=== PATIENT | female | born 1945 | race Caucasian/White ===

== ENCOUNTER → 2023-05-09 10:41 | Outpatient (REF) | payer OTHER, SELFPAY | LOC: WOUND 10:41 | PROVIDERS: ATTENDING PHYSICIAN Surgery; REFERRING PHYSICIAN Family Medicine | DX: L97.812 Non-pressure chronic ulcer of other part of right lower leg with fat layer exposed (principal); L97.822 Non-pressure chronic ulcer of other part of left lower leg with fat layer exposed; I87.2 Venous insufficiency (chronic) (peripheral); I73.9 Peripheral vascular disease, unspecified; I48.0 Paroxysmal atrial fibrillation; Z79.01 Long term (current) use of anticoagulants | CPT/HCPCS: 11042; 97597; 99213 ==

== ENCOUNTER → 2023-05-23 09:44 | Outpatient (REF) | payer OTHER, SELFPAY | LOC: WOUND 09:44 | PROVIDERS: ATTENDING PHYSICIAN Surgery; REFERRING PHYSICIAN Family Medicine | DX: L97.812 Non-pressure chronic ulcer of other part of right lower leg with fat layer exposed (principal); I87.2 Venous insufficiency (chronic) (peripheral); I73.9 Peripheral vascular disease, unspecified; L03.115 Cellulitis of right lower limb; L97.822 Non-pressure chronic ulcer of other part of left lower leg with fat layer exposed; I48.0 Paroxysmal atrial fibrillation; Z79.01 Long term (current) use of anticoagulants | CPT/HCPCS: 11042; 97597 ==

== ENCOUNTER → 2024-02-06 13:57 | Outpatient (REF) | payer OTHER, SELFPAY | LOC: HWRAD 13:57 | PROVIDERS: ATTENDING PHYSICIAN Family Medicine | DX: R51.9 Headache, unspecified (principal) | CPT/HCPCS: 70450 ==

== ENCOUNTER → 2024-03-27 10:35 | Outpatient (REF) | payer OTHER, SELFPAY | LOC: HWRAD 10:35 | PROVIDERS: ATTENDING PHYSICIAN Family Medicine | DX: R51.9 Headache, unspecified (principal); M54.2 Cervicalgia | CPT/HCPCS: 72052 ==

== ENCOUNTER → 2024-10-21 14:03 | Outpatient (REF) | payer OTHER, SELFPAY | LOC: HWRAD 14:03 | PROVIDERS: ATTENDING PHYSICIAN Student in an Organized Health Care Education/Training Program; FAMILY PHYSICIAN Family Medicine | DX: E55.9 Vitamin D deficiency, unspecified (principal); M54.12 Radiculopathy, cervical region; M81.0 Age-related osteoporosis without current pathological fracture; R21 Rash and other nonspecific skin eruption; R51.9 Headache, unspecified | CPT/HCPCS: 73120 ==

== ENCOUNTER → 2024-10-23 14:18 | Outpatient (REF) | payer OTHER, SELFPAY | LOC: HWRAD 14:18 | PROVIDERS: ATTENDING PHYSICIAN Student in an Organized Health Care Education/Training Program; FAMILY PHYSICIAN Family Medicine | DX: M81.0 Age-related osteoporosis without current pathological fracture (principal) | CPT/HCPCS: 77080 ==

== ENCOUNTER → 2024-10-30 13:34 | Outpatient (REF) | payer OTHER, SELFPAY | LOC: HWWDC 13:34 | PROVIDERS: ATTENDING PHYSICIAN Nurse Practitioner Adult Health; FAMILY PHYSICIAN Family Medicine | DX: Z12.31 Encounter for screening mammogram for malignant neoplasm of breast (principal); R06.00 Dyspnea, unspecified | CPT/HCPCS: 71046 ==

== ENCOUNTER → 2024-11-03 15:40 | Outpatient (REF) | payer OTHER, SELFPAY | LOC: HWRCS 15:40 | PROVIDERS: ATTENDING PHYSICIAN Internal Medicine Cardiovascular Disease; FAMILY PHYSICIAN Family Medicine | DX: R06.02 Shortness of breath (principal) | CPT/HCPCS: 93306 ==

== ENCOUNTER 2024-11-04 13:17 | Outpatient (RCR) | payer OTHER, SELFPAY ==
[2024-11-04 13:35] LABS: % Basophils 0.8 % (0-2); % Eosinophils 0.9 % (0-6); % Immature Granulocytes 0.1 % (0-0.5); % Lymphocytes 23.1 % (20.5-51.1); % Monocytes 10.9 % (1.7-9.3); % Neutrophils 64.2 % (42.2-75.2); Absolute Basophils 0.1 10^3/uL (0-0.2); Absolute Eosinophils 0.1 10^3/uL (0-0.7); Absolute Lymphocytes 1.7 10^3/uL (1.2-3.4); Absolute Monocytes 0.8 10^3/uL (0.1-0.6); Absolute Neutrophils 4.8 10^3/uL (1.4-6.5); Hematocrit 41.6 % (37.0-47.0); Hemoglobin 14.5 g/dL (12.0-16.0); Mean Corp Hgb Conc. 34.9 g/dL (33.0-37.0); Mean Corpuscular Hgb 34.3 pg (27.0-31.0); Mean Corpuscular Volume 98.3 fL (81.0-99.0); Mean Platelet Volume 9.3 fL (7.4-10.4); Platelet Count 217 10^3/uL (130-400); Red Blood Cell Count 4.23 10^6/uL (4.20-5.40); Red Cell Dist. Width 11.9 % (11.5-14.5); White Blood Cell Count 7.4 10^3/uL (4.8-10.8)
[2024-11-04 13:45] VITALS: BP 142/77
[2024-11-04 13:59] VITALS: BP 117/73
[2024-11-04 14:11] VITALS: BP 125/65
[2024-11-04 14:22] VITALS: BP 120/61
[2024-11-04 14:48] VITALS: BP 121/70
== END 2024-11-05 08:52 | disposition home or self-care (01) ==
LOC: OID 13:17
PROVIDERS: ATTENDING PHYSICIAN Internal Medicine Hematology & Oncology; FAMILY PHYSICIAN Family Medicine
DX: E83.110 Hereditary hemochromatosis (principal)
CPT/HCPCS: 85025; 99195

== ENCOUNTER → 2024-11-14 12:17 | Outpatient (REF) | payer OTHER, SELFPAY | LOC: HWRAD 12:17 | PROVIDERS: ATTENDING PHYSICIAN Student in an Organized Health Care Education/Training Program; FAMILY PHYSICIAN Family Medicine | DX: M25.512 Pain in left shoulder (principal) | CPT/HCPCS: 73030 ==

== ENCOUNTER → 2024-12-08 12:42 | Outpatient (REF) | payer OTHER, SELFPAY | LOC: HWRAD 12:42 | PROVIDERS: ATTENDING PHYSICIAN Family Medicine; REFERRING PHYSICIAN Specialist | DX: R22.30 Localized swelling, mass and lump, unspecified upper limb (principal) | CPT/HCPCS: 76882 ==

== ENCOUNTER → 2024-12-24 10:26 | Outpatient (REF) | payer OTHER, SELFPAY | LOC: RAD 10:26 | PROVIDERS: ATTENDING PHYSICIAN Family Medicine; REFERRING PHYSICIAN Specialist | DX: M79.602 Pain in left arm (principal) | CPT/HCPCS: 73201; Q9967 ==

== ENCOUNTER 2025-04-13 06:50 | Day surgery (SDC) | payer OTHER, SELFPAY ==
[2025-04-13 07:52] LABS: INR 2.29; PT 25.2 Sec (11.4-14.6)
== END 2025-04-13 09:50 | disposition home or self-care (01) ==
LOC: CATH 06:50
PROVIDERS: ATTENDING PHYSICIAN Internal Medicine Cardiovascular Disease; FAMILY PHYSICIAN Family Medicine; REFERRING PHYSICIAN Internal Medicine Cardiovascular Disease
DX: I48.19 Other persistent atrial fibrillation (principal); I08.1 Rheumatic disorders of both mitral and tricuspid valves; I47.10 Supraventricular tachycardia, unspecified; I10 Essential (primary) hypertension; J44.9 Chronic obstructive pulmonary disease, unspecified; K21.9 Gastro-esophageal reflux disease without esophagitis; G47.33 Obstructive sleep apnea (adult) (pediatric); Z86.73 Personal history of transient ischemic attack (TIA), and cerebral infarction without residual deficits
CPT/HCPCS: 93312; 93320; 93325; 85610

== ENCOUNTER 2025-04-15 07:58 | Day surgery (SDC) | payer OTHER, SELFPAY ==
[2025-04-10 11:22] VITALS: BMI 29.3
[2025-04-10 11:46] LABS: Hematocrit 39.7 % (37.0-47.0); Hemoglobin 13.5 g/dL (12.0-16.0); Mean Corp Hgb Conc. 34.0 g/dL (33.0-37.0); Mean Corpuscular Volume 93.0 fL (81.0-99.0); Nucleated Red Blood Cells % 0 %; Platelet Count 234 10^3/uL (130-400); Red Cell Dist. Width 13.1 % (11.5-14.5)
[2025-04-10 11:51] LABS: INR 1.84; PT 21.5 Sec (11.4-14.6)
[2025-04-10 12:28] LABS: ALT (SGPT) 22 U/L (0-35); AST (SGOT) 23 U/L (14-36); Albumin 4.6 g/dl (3.5-5.0); Alkaline Phosphatase 104 U/L (38-126); Blood Urea Nitrogen 14 mg/dl (7-17); Calcium 9.5 mg/dl (8.4-10.2); Carbon Dioxide 23 mmol/L (22-30); Chloride 101 mmol/L (98-107); Estimated Creatinine Clearance 55 ml/min; Glucose 110 mg/dl (70-99); Magnesium 2.1 mg/dl (1.6-2.3); Potassium 4.9 mmol/L (3.5-5.1); Sodium 132 mmol/L (135-145); Total Protein 7.5 g/dl (6.3-8.2); eGFR > 60.00
[2025-04-15] VITALS (15 sets, daily range): BP systolic 94–124; BP diastolic 49–74; BMI 29.1
[2025-04-15 09:10] LABS: INR 2.09; PT 24.0 Sec (11.4-14.6)
--- NOTE | 2025-04-15 10:35 | ITS.CL.ABL ---
[facility] - Ablation
Ablation
Procedure Report:
ELECTROPHYSIOLOGIC STUDY AND POSSIBLE ABLATION
DATE: April 15, 2025
Primary Care Provider: Dr. Cesar Houston
INDICATION:
Symptomatic Atrial Fibrillation.
Persistent
HISTORY: See H and P.
Symptomatic AF, poorly controlled with attempted medical therapy.
Anita has symptomatic persistent atrial fibrillation that has been rather complicated to manage.
She has had multiple allergic reactions to anticoagulants.
She also has a history of hemachromatosis and undergoes routine phlebotomy.
She has COPD and obstructive sleep apnea. Utilizes CPAP.
.
After cryptogenic stroke in November 2011, implanted loop recorder diagnosed atrial fibrillation.
Atrial fibrillation subsequently became persistent and she became more symptomatic.
She was planned for PVI but developed multiple allergic reactions to a variety of anticoagulants including factor Xa inhibitors as well as direct thrombin inhibitors and vitamin K antagonists. She has seen a variety of specialists including
dermatologists and allergy docs. Eventually she was able to tolerate warfarin but Initially required steroid therapy while taking warfarin.
She underwent PVI / LA ablation 09/11/18. Monitoring via her implanted loop recorder (LINQ) demonstrated no recurrences of atrial fibrillation. New loop recorder was implanted in 2019.delivery of decremental extrastimuli down to atrial effective
refractory period and no sustained arrhythmias could be induced.
This year, she has recurred with symptomatic atrial fibrillation.
.
Echocardiogram 12/29/2022 EF 55 to 60%, moderately dilated left atrium, dilated right atrium, mild to moderate MR, color Doppler suggests small PFO. Unchanged from prior echo in 2019.
HAS-BLED: 3
Age
H/O Stroke
H/O Bleeding
CHADSVASc: 5
HTN
Age
h/o Stroke
F Gender
PRESENTING RHYTHM: AF
HISTORY: See H and P.
Symptomatic AF, poorly controlled with attempted medical therapy.
ANTICOAGULATION: Warfarin
DORETHA 04/13/25 no left atrial appendage thrombus
'TIME-OUT': called and confirmed.
SEDATION/ANESTHESIA: provided via the anesthesia department using general anesthesia.
PROCEDURE:
Ultrasound Guidance with real-time visualization of needle insertion and vessel patency performed by me for femoral venous Vascular Access.
Under real-time US guidance, the needle was advanced with negative pressure into the vein. The needle was seen entering the vessel lumen with a good return of dark red flow, the syringe was removed, non-pulsatile, dark red blood low was noted and
the wire was passed without difficulty, then the needle was removed. US confirmed the wire was in the vein, not going into an artery,
Images were taken and saved for the patient's permanent record. Imaging findings typical femoral venous anatomy. Direct visualization of needle puncture into the femoral vein was observed and recorded.
A decapolar CS catheter was placed within the CS for mapping and pacing.
The intracardiac ultrasound catheter was positioned in the RA for continuous intracardiac ultrasound imaging.
Heparin bolus and infusion to target ACT at 300 -350 seconds was administered. Transseptal puncture was performed. This entailed advancing a sheath with dilator into the superior vena cava and withdrawing both (monitoring intracardiac ultrasound,
fluoroscopy and tip pressure) with the tip oriented toward the atrial septum. The fossa ovalis was engaged (indicated by sudden displacement of the sheath tip as well as tenting of the fossa seen on intracardiac ultrasound).
Transseptal puncture was performed. Left atrial catheter position was confirmed by echocardiographic imaging, pressure monitoring (LA mean pressure 18 mm Hg) and fluoroscopy. The sheath was advanced over the dilator and positioned in the left
atrium.
The [employer] multipolar mapping/ablation Sphere-9 catheter was positioned through the transseptal sheath for high density mapping.
Geometry and voltage mapping was performed using the [employer] mapping system for three-dimensional electroanatomical mapping.
Catheter positioning was guided and confirmed using both I.C.E. and fluoroscopy.
Cardioversion resulted in sinus rhythm.
Ablation strategy included PVI as well as mapping for extra PV contributors to atrial fibrillation which would also be targeted if present.
High density electroanatomical three-dimensional mapping demonstrated Common Left PV with early branching into LSPV and LIPV as well as individual RSPV, RIPV.
Mapping demonstrates reconnection at the right pulmonary veins, at the inferior quadrant of the right superior pulmonary vein and superior quadrant of the right inferior pulmonary vein towards the right sided PV jodie.
PV isolation at this location was the initial target for ablation and accomplished with delivery of pulsed electric field energy via the sphere 9 catheter.
There is also suggestion of reconnection towards the superior quadrant of the left superior pulmonary vein this area was also successfully ablated with delivery of pulsed electric field energy.
After accomplishing pulmonary venous isolation, mapping identified additional areas likely to be extra PV contributors to atrial fibrillation. These areas demonstrated patchy low voltage as well as complex fractionated electrograms. These areas can
be sites for the formation of rotors which can drive and maintain atrial fibrillation. These areas are known to be significant contributors to initiation and perpetuation of atrial fibrillation.
Additional energy applications/additional ablation sets targeted extra PV contributors to atrial fibrillation.
Targets for additional PFA ablation included:
LA posterior wall targeted with pulsed electric field energy isolating the posterior wall of the left atrium
After ablation of the posterior wall, additional targets remained:
LA inferior floor
Anterior LA roof
These areas were ablated using pulsed electric field energy eliminating the extra PV contributors to atrial fibrillation.
Post ablation mapping finds entrance and exit block at each of the pulmonary veins (Common Left PV, RSPV, RIPV), the LA posterior wall and at the additional lines at anterior roof of the LA and the inferior/floor of the LA rendering the sites no
longer able to contribute to atrial fibrillation.
Programmed electrostimulation including burst atrial pacing as well the delivery of decremental extrastimuli down to atrial ERP failed to induce any sustained arrhythmia.
I.C.E. :
Pre-Ablation Post-Ablation
LVEF: 55 % 55 %
WMA: none none
Pericardial effusion: trace post trace post
COMPLICATIONS:
None
SUMMARY:
- Mapping and ablation to isolate the PVs resulting in electrical isolation of the pulmonary veins
- Additional AF ablation sets X 3 after PVI
LA posterior wall
Inf/floor of the LA posterior wall
Anterior roof line)
This resulted in elimination of the targeted extra PV contributors to atrial fibrillation (Post wall, Inf LA floor and anterior roof line)
- 3-D Electroanatomical Mapping
- Intracardiac Ultrasound
- Ultrasound guidance for vascular access
Post ablation, I discussed today's findings and results with the patient's sister Adrienne.
RECOMMENDATIONS:
- Observe in monitored bed.
- Maintain oral anticoagulation, warfarin with goal INR between 2 and 3.
- Office visit with me is scheduled for July 16, 2025.
Copy to:
Dr. Cesar Houston
[2025-04-15 11:53] LABS: ACT-LR - POC 392 Seconds (116-155)
[2025-04-15] MEDS: TYLENOL 650 MG PO (13:49)
[2025-04-15 14:52] LABS: ACT-LR - POC > 397 Seconds (116-155)
[2025-04-15] MEDS: COUMADIN 5 MG PO (18:27)
[2025-04-15] MEDS: TYLENOL 500 MG PO (18:30)
--- NOTE | 2025-04-15 19:14 | PTCARENOTE ---
Pt received from recovery area post ablation. Right femoral venous site with dry and intact dressing, figure of eight suture removed without difficulty per protocol, no sign of bleeding or hematoma. Pt OOB with minimal assistance. Pt reported right
sided headache which she states is related to her cervical arthritis, aware, pt given extra strength tylenol. Telemetry shows sinus rhythm with a few seconds of atrial tachycardia.
[2025-04-16] MEDS: ATIVAN 0.5 MG PO ×2 (02:09→11:54)
[2025-04-16 02:14] VITALS: BP 122/68
[2025-04-16 02:44] LABS: Hematocrit 35.8 % (37.0-47.0); Hemoglobin 12.7 g/dL (12.0-16.0); Mean Corp Hgb Conc. 35.5 g/dL (33.0-37.0); Mean Corpuscular Volume 90.6 fL (81.0-99.0); Platelet Count 207 10^3/uL (130-400); Red Cell Dist. Width 12.8 % (11.5-14.5)
[2025-04-16 03:09] LABS: Blood Urea Nitrogen 16 mg/dl (7-17); Calcium 9.3 mg/dl (8.4-10.2); Carbon Dioxide 21 mmol/L (22-30); Chloride 106 mmol/L (98-107); Estimated Creatinine Clearance 64 ml/min; Glucose 136 mg/dl (70-99); Magnesium 2.2 mg/dl (1.6-2.3); Potassium 4.1 mmol/L (3.5-5.1); Sodium 134 mmol/L (135-145); eGFR > 60.00
--- NOTE | 2025-04-16 03:28 | PTCARENOTE ---
Received pt @ change of shift. AAOx3, VSS-- NSR on monitor with occasional PVCs. Pt c/o headache on right side of head-- ice given since Tylenol not due yet. Pt also requested ambulating again with RN-- walk taken. Right groin site clean, dry, and
intact. No ecchymosis, tenderness, or swelling present @ this time. Pt requested purewick overnight due to overactive bladder-- discussed risks of UTI with pt. Stated that she 'doesn't care. [She] would rather have a good night sleep than have to
get up every hour in a place I don't know with my groin wound.' Discussed plan of care. Pt verbalizes understanding. Call ennis within reach.
[2025-04-16 07:02] VITALS: BP 106/68
[2025-04-16] MEDS: PROTONIX 40 MG PO (07:50)
[2025-04-16] MEDS: CARDIZEM CD 360 MG PO (08:21)
--- NOTE | 2025-04-16 08:45 | W.PN.CARDCBS ---
Addendum entered and electronically signed by Roman Goldman MD 04/16/25 11:01:
Patient seen, interviewed and examined by me.
Well-appearing, no acute distress
Regular rate and rhythm with normal S1 and S2, no S3 no S4. There is a grade 1/6 apical holosystolic murmur and no rubs. PMI is normally placed.
Lungs are clear to auscultation bilaterally without wheezes rales or rhonchi.
Abdomen soft nontender nondistended with normoactive bowel sounds
Extremities show trace pretibial edema bilaterally no clubbing or cyanosis.
Neurologic exam is grossly nonfocal.
She is doing well after her ablation from yesterday. She is maintaining sinus rhythm. She is hemodynamically stable but there is resting sinus bradycardia. Of note she did not receive her calcium channel cande/diltiazem yesterday and she has
been on a rather high dose. Will reinitiate diltiazem but at a lower dose of 360 mg daily.
I reviewed yesterday's findings with her and also reviewed discharge instructions.
Overall she is stable for discharge to home and discharge follow-up arrangements have been made.
All of her questions have been answered.
Original Note:
Today's Communication / Plan
-
resume diltiazem at lower dose
monitor HR/BP
home later today if stable
Impression / Plan
-
Primary Care Provider: Dr. Cesar Houston
Primary desk officer: Roman Goldman MD
Impression:
Symptomatic persistent atrial fibrillation prior PVI 2017
post redo PVI 04/15/25
HTN
COPD
CANDE/CPAP
TIA 2011
hemochromatosis routine phlebotomy
SVT
GERD
Loop recorder 2019
Multiple drug allergies
Insomnia
Plan:
post ablation
groin stable
tele SR/ST HR 90-120's
OAC Warfarin 5mg daily, [facility] managing, INR goal 2-3
Did not receive a dose of diltiazem 04/15, will restart at lower dose of 360mg daily
Activity restrictions reviewed
f/u Dr. Lott 3 mo
home later today if HR improved
Progress Note - Parboiler
Subjective
Date of Service: April 16, 2025
denies cp, sob, did not sleep well
Objective
Labs:
04/16/25 02:28
04/16/25 02:28
Labs
Hgb 12.7 g/dL (12.0-16.0) 04/16/25 02:28
Hct 35.8 % (37.0-47.0) L 04/16/25 02:28
Plt Count 207 10^3/uL (130-400) 04/16/25 02:28
PT 24.0 Sec (11.4-14.6) H 04/15/25 08:47
INR 2.09 04/15/25 08:47
Sodium 134 mmol/L (135-145) L 04/16/25 02:28
Potassium 4.1 mmol/L (3.5-5.1) 04/16/25 02:28
BUN 16 mg/dl (7-17) 04/16/25 02:28
Creatinine 0.6 mg/dL (0.6-1.0) 04/16/25 02:28
Glucose 136 mg/dl (70-99) H 04/16/25 02:28
Vital Signs and I&O:
Vital Signs
Temp Pulse Resp BP Pulse Ox
98.3 F 119 20 106/68 96
04/16/25 07:05 04/16/25 07:15 04/16/25 07:05 04/16/25 07:02 04/16/25 07:44
Vital Signs
Temp Pulse Resp BP Pulse Ox
98.3 F 119 20 106/68 96
04/16/25 07:05 04/16/25 07:15 04/16/25 07:05 04/16/25 07:02 04/16/25 07:44
Intake & Output
04/14/25 04/15/25 04/16/25 04/17/25
06:59 06:59 06:59 06:59
Intake Total 1580 / 1580
Output Total 1650 / 1650
Balance -70 / -70
Physical Exam
Physical Exam
NAD, AOX3
S1, S2, RRR
CTAB, non labored, no wheeze
SNTND bsx4
R fem site c/d/i no HT, soft
[2025-04-16 11:13] VITALS: BP 103/58
--- NOTE | 2025-04-16 11:37 | W.DS.TRANS ---
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
-
Discharge Instructions:
Discharge Diagnosis/Procedures Atrial fibrillation post ablation
Diet Low Cholesterol
Driving Restrictions No driving for 24 hours
Instructions:
Stand-Alone Forms: DC Instructions- Cath/EP Lab
Changes to Home Medications: Yes
Discharge Medications:
DC Medications w/original date entered in [employer]
omeprazole 20 mg capsule,delayed release 20 mg PO DAILY Gastrointestinal issue 08/09/18
diltiazem HCl 360 mg capsule,extended release 24 hr 360 mg PO DAILY Blood pressure 02/03/21
epinephrine 0.3 mg/0.3 mL injection, auto-injector (EpiPen 2-El) 0.3 mg IM Q5-15M PRN allergies] 04/13/25
acetaminophen 500 mg tablet 500 mg PO Q6H PRN pain 04/15/25
cream base no.31 (bulk) (Transdermal Pain Base cream) 1 applic miscellaneous TID 04/15/25
ergocalciferol (vitamin D2) 50 mcg (2,000 unit) tablet 50 mcg PO DAILY 04/15/25
lactobacillus comb no.10 20 billion cell capsule (Probiotic) 20,000 mmu cells PO DAILY 04/15/25
levalbuterol tartrate 45 mcg/actuation aerosol inhaler 2 inh inhalation Q4H PRN wheezing 04/15/25
lorazepam 0.5 mg tablet (Ativan) 0.5 mg PO TID PRN anxiety 04/15/25
peg 400-propylene glycol 0.4 %-0.3 % eye drops (Systane (propylene glycol)) 1 drp ophthalmic (eye) DAILY 04/15/25
warfarin 5 mg tablet 5 mg PO DAILY 04/15/25
Home Medication Changes
decrease diltiazem to 360mg daily
Pending Results: No
--- NOTE | 2025-04-16 11:56 | CM ---
CM following for DC planning needs.
Met w/ Yasmin at bedside to complete initial assessment. Pt. reports that she resides alone in a private, [facility]. She is functionally indep. w/ ADLs, mobility without the use of any assisted device. Pt. drives, is active.
DC plan is for home without needs.
Will remain available for any needs that may arise.
--- NOTE | 2025-04-16 13:49 | PTCARENOTE ---
Pt seen by Dr. Puga and Juliana Ochoa NP. Pt walking in halls in sinus rhythm 90-104. Right groin site open to air , no sign of bleeding or hematoma. Telemetry and IV device removed. Discharge instructions reviewed with pt regarding wound
care, activity and driving restrictions, medications and their possible side effects, reporting cares and concerns and follow up appt's. Excellent understanding verbalized. Pt escorted out via wheelchair and discharged to home.
== END 2025-04-16 13:45 | disposition home or self-care (01) ==
LOC: CATH 07:58
PROVIDERS: Nurse Practitioner Adult Health; ATTENDING PHYSICIAN Internal Medicine Cardiovascular Disease; FAMILY PHYSICIAN Family Medicine
DX: I48.19 Other persistent atrial fibrillation (principal); E83.119 Hemochromatosis, unspecified; G45.9 Transient cerebral ischemic attack, unspecified; G47.00 Insomnia, unspecified; G47.33 Obstructive sleep apnea (adult) (pediatric); I10 Essential (primary) hypertension; Z79.01 Long term (current) use of anticoagulants; Z79.899 Other long term (current) drug therapy; J44.9 Chronic obstructive pulmonary disease, unspecified; I47.10 Supraventricular tachycardia, unspecified; K21.9 Gastro-esophageal reflux disease without esophagitis; Z86.73 Personal history of transient ischemic attack (TIA), and cerebral infarction without residual deficits; Z88.0 Allergy status to penicillin
CPT/HCPCS: C1733; C1894; C1769; C1766; C1730; C1892; 36415; 80048; 80053; 83735; 85025; 85027; 85347; 85610; 86850; 86900; 86901; 93005; 93656; 93657

== ENCOUNTER → 2025-09-14 10:47 | Outpatient (REF) | payer OTHER, SELFPAY | LOC: HWRAD 10:47 | PROVIDERS: ATTENDING PHYSICIAN Nurse Practitioner Adult Health; FAMILY PHYSICIAN Family Medicine | DX: R06.00 Dyspnea, unspecified (principal) | CPT/HCPCS: 71250 ==